=== PATIENT | male | born 1970 | race Caucasian/White ===

== ENCOUNTER 2021-09-29 11:12 | Outpatient (CLI) | payer OTHER, SELFPAY ==
[2021-09-29 11:39] LABS: Hematocrit 43.8 % (40.0-54.0); Hemoglobin 15.1 g/dL (14.0-18.0); Mean Corpuscular HGB Conc 34.5 g/dL (32.0-36.0); Mean Corpuscular Hemoglobin 30.4 pg (27.0-31.0); Mean Corpuscular Volume 88.3 fL (78.0-102.0); Mean Platelet Volume 9.7 fl (8.7-11.0); Platelet Count Result 248 K/mm3 (150-420); Red Blood Count 4.96 M/mm3 (4.70-6.10); Red Cell Distribution Width 12.5 % (11.6-14.4); White Blood Count 8.7 K/mm3 (4.8-10.8)
[2021-09-29 11:45] LABS: Hemoglobin A1C 9.4 % (<5.7)
[2021-09-29 11:57] LABS: Alanine Aminotransferase 33 U/L (16-63); Albumin Level 3.7 g/dL (3.4-5.0); Alkaline Phosphatase 87 U/L (46-116); Anion Gap 7 mmol/L (8-16); Aspartate Amino Transferase 27 U/L (15-37); Bilirubin,Total 0.6 mg/dL (0.00-1.00); Blood Urea Nitrogen 12 mg/dL (7-18); Calcium 9.3 mg/dL (8.5-10.1); Carbon Dioxide 26 mmol/L (21-32); Chloride 100 mmol/L (98-108); Cholesterol 201 mg/dL (0-200); Estimated Glomerular Filt Rate > 60; Glucose 255 mg/dL (70-99); HDL Direct 43 mg/dL (40-60); LDL Cholesterol Calculated 119 mg/dL (<130); Osmolality Calculated 284 mOsm/kg (285-295); Sodium 133 mmol/L (136-145); Total Protein 7.9 g/dL (6.4-8.2); Triglycerides 195 mg/dL (0-150)
[2021-09-29 12:10] LABS: Thyroid Stimulating Hormone Reflex 1.46 u/IU/mL (0.36-3.74)
== END 2021-09-29 11:13 | disposition home or self-care (01) ==
LOC: CHSLAB 11:16
PROVIDERS: PCP Family Medicine; Visit Provider Family Medicine
DX: Z00.00 Encounter for general adult medical examination without abnormal findings (principal); E11.9 Type 2 diabetes mellitus without complications
CPT/HCPCS: 36415; 80053; 80061; 83036; 84443; 85027

== ENCOUNTER 2021-09-30 10:55 | Outpatient (CLI) | payer OTHER, SELFPAY ==
[2021-09-30 11:32] LABS: Creatinine Urine 126.78 mg/dL (40-278); MALB Creatinine Ratio 10.9 mg/g (0-30); Microalbumin Urine Random 13.9 mg/L
== END 2021-09-30 10:56 | disposition home or self-care (01) ==
LOC: CHSLAB 10:57
PROVIDERS: PCP Family Medicine; Visit Provider Family Medicine
DX: E11.9 Type 2 diabetes mellitus without complications (principal)
CPT/HCPCS: 82043

== ENCOUNTER 2021-11-17 00:35 | Day surgery (SDC) | payer OTHER, SELFPAY ==
[2021-11-02 14:03] VITALS: BMI 36.8
[2021-11-17 06:54] LABS: Glucose Point of Care 86 mg/dl (65-105)
[2021-11-17 06:55] VITALS: BP 120/72; PULSE 53; RESP 18; TEMP 36.3; O2SAT 99
[2021-11-17] MEDS: LACTATED RINGERS 1,000 ML 150 ML IV CONT (06:58)
--- NOTE | 2021-11-17 07:29 | P.PNAN_ITS ---
Anes - Initial Pre Proc Eval Procedure: Operation Date: 11/17/21 08:00 Proposed Procedures p Screening Colonoscopy - Toby Capps DO Date/Time: 11/17/21 07:29 Surgeon: Toby Capps DO Pre Op Diagnosis: neoplasm screening Patient Data Age: 51 Gender: M Height: 1.73 m Weight: 108.4 kg Last Vital Signs Temp 97.4 F L 11/17/21 06:55 Pulse 53 L 11/17/21 06:55 Resp 18 11/17/21 06:55 BP 120/72 11/17/21 06:55 Pulse Ox 99 11/17/21 06:55 O2 Del Method Room Air 11/17/21 06:55 Allergies Allergy/AdvReac Type Severity Reaction Status Date / Time ibuprofen [From Advil] Allergy Hives Verified 11/17/21 06:54 Home Medications Medication Instructions Recorded Confirmed Type metformin 500 mg tablet 500 mg PO BID #180 tabs 09/30/21 11/02/21 Rx dulaglutide 0.75 mg/0.5 mL 0.75 mg (0.5 mL) subcut WEEKLY #2 10/04/21 11/02/21 Rx subcutaneous pen injector mL (Trulicity) Laboratory Tests 11/17/21 06:50 POC Capillary Glucose 86 mg/dl mg/dl (65-105) Patient hx anesthesia problems: none Family hx anesthesia problems: none Results Review: All pre-operative results and documents have been reviewed as part of the pre- operative evaluation. [facility], [facility] Past Medical History Medical History DEMETRIO (obstructive sleep apnea) Surgical History Surgical History No history of previous surgery Social History Social History Smoking packs per day: 2 Smoking cigarettes per day: 40.0 Years smoked: 20 Smoking pack-years: 40.00 Smoking status: Former smoker Tobacco type: cigarettes Substance use type: does not use Living arrangements: with family Additional living arrangements comments: . 2 children. Spiritual care concerns: No Anes - Eval Final PreProcedure Day of Procedure 11/17/21 07:29 Patient weight: obese Heart: regular rate and rhythm Lungs: clear to auscultation Airway: Mallampati scale class II Neurological: alert and oriented Last oral intake: >/= 8 hours ASA classification: III Emergent: no Anesthetic plan: proceed Anesthesia type and monitoring: general GIVS and standard monitoring Results Review: All pre-operative results and documents have been reviewed as part of the pre- operative evaluation. Informed Consent: The patient's anesthetic plan and its attendant risks and benefits were discussed with the patient/family/POA. Questions were solicited and answers provided to the satisfaction of the patient/family/POA.
--- NOTE | 2021-11-17 07:36 | PM.IMHP ---
H&P: HPI History of Present Illness Date/Time: 11/17/21 07:36 Chief Complaint: Screening for colorectal cancer Narrative: 51 yo man presents for colonoscopy. Denies hematochezia or melena. Has uncle with hx colon cancer but no 1st degree relatives. Review of Systems Review of Systems: All systems reviewed & are unremarkable except as noted in HPI and below Constitutional: Constitutional: Denies chills, Denies fever(s), Denies headache(s) and Denies weight loss Eyes: Eyes: Denies change in vision ENT: Denies dizziness, Denies headache(s), Denies neck mass and Denies throat swelling Cardiovascular: Cardiovascular: Denies chest pain, Denies lightheadedness and Denies dyspnea Respiratory: Respiratory: Denies cough, Denies dyspnea and Denies wheezing Gastrointestinal: Gastrointestinal: Denies abdominal pain, Denies change in bowel habits, Denies nausea and Denies vomiting Genitourinary: Genitourinary: Denies hematuria and Denies dysuria Musculoskeletal: Musculoskeletal: Reports as per HPI Integumentary/Breasts: Skin/Breast: Reports as per HPI Neurologic: Denies dizziness and Denies headache(s) Allergic/Immunologic: Allergic/Immunologic: Denies throat swelling and Denies wheezing [facility] Past Medical History Medical History DEMETRIO (obstructive sleep apnea) Surgical History Surgical History No history of previous surgery Social History Social History Smoking packs per day: 2 Smoking cigarettes per day: 40.0 Years smoked: 20 Smoking pack-years: 40.00 Smoking status: Former smoker Tobacco type: cigarettes Substance use type: does not use Living arrangements: with family Additional living arrangements comments: . 2 children. Spiritual care concerns: No Meds Home Medications and Allergies Home Medications Medication Instructions Recorded Confirmed Type metformin 500 mg tablet 500 mg PO BID #180 tabs 09/30/21 11/02/21 Rx dulaglutide 0.75 mg/0.5 mL 0.75 mg (0.5 mL) subcut WEEKLY #2 10/04/21 11/02/21 Rx subcutaneous pen injector mL (Trulicity) Allergies Allergy/AdvReac Type Severity Reaction Status Date / Time ibuprofen [From Advil] Allergy Hives Verified 11/17/21 06:54 Vital Signs Vital Signs - 24 hr 11/17/21 06:55 Temperature 36.3 C L Pulse Rate 53 L Respiratory Rate 18 Blood Pressure 120/72 Pulse Oximetry 99 Oxygen Delivery Room Air Exam Const: General: no acute distress and alert Orientation/consciousness: patient oriented x3 HENMT: Head: normocephalic and atraumatic Ears: hearing grossly normal bilaterally General nose exam: Normal nares present Mouth: Yes Normal oral and palatal mucosa present Eyes: Periorbital: periorbital findings normal Sclera: sclerae normal EOM: EOMs intact bilaterally Neck: Neck: normal visual inspection, no lymphadenopathy and trachea midline Chest: Chest palpation & inspection: normal inspection of the chest Resp: Effort & Inspection: normal respiratory effort Auscultation: clear to auscultation bilaterally Cardio: Jugular venous distension: no JVD Rate: regular rate Rhythm: regular rhythm Heart sounds: S1 normal heart sound present and S2 normal heart sound present Peripheral pulses: Peripheral pulses 2+ throughout GI: Inspection: normal to inspection GI Palp: Yes Soft to palpation, No Tenderness to palpation present (GI), No Guarding due to palpation present (GI) and No Rebound tenderness present Percussion: Yes normal to percussion Auscultation: normal bowel sounds : General: Yes no CVA tenderness Back/Spine/Pelvis: Back: no CVA tenderness Neuro: General: patient oriented x3, no focal motor deficits and CN's II-XI intact bilaterally Cognition (Neuro): normal cognition Speech: normal speech Motor exam (neuro): 5/5 motor strength present t
[2021-11-17 08:09] VITALS: BP 87/52; PULSE 56; RESP 18; O2SAT 96
[2021-11-17 08:19] VITALS: BP 87/62; PULSE 54; RESP 19; O2SAT 96
[2021-11-17 08:29] VITALS: BP 110/68; PULSE 56; RESP 20; O2SAT 98
== END 2021-11-17 08:35 | disposition home or self-care (01) ==
PROVIDERS: PCP Family Medicine; Visit Provider Surgery
PROC: 0DJD8ZZ Inspection of Lower Intestinal Tract, Via Natural or Artificial Opening Endoscopic (ICD-10-PCS; CPT 45378; principal; 2021-11-17 08:00)
DX: Z12.11 Encounter for screening for malignant neoplasm of colon (principal); D12.3 Benign neoplasm of transverse colon; D12.5 Benign neoplasm of sigmoid colon; K64.4 Residual hemorrhoidal skin tags; K63.5 Polyp of colon; G47.33 Obstructive sleep apnea (adult) (pediatric); Z87.891 Personal history of nicotine dependence; Z79.84 Long term (current) use of oral hypoglycemic drugs; E66.9 Obesity, unspecified; Z68.36 Body mass index [BMI] 36.0-36.9, adult
CPT/HCPCS: 45385; 45380; 82948; 88305; J2704; J7120

== ENCOUNTER 2022-10-09 08:54 | Outpatient (CLI) | payer OTHER, SELFPAY ==
--- NOTE | ~2022-10-09 | XR_ITS ---
Bilateral Hands Technique: Bilateral PA, oblique, and lateral views, and ball-catcher's view were obtained. Clinical History: Polyarthritis Findings: No acute fracture or dislocation is seen. There is moderate degenerative change at the righ t fifth PIP joint. Remaining joint spaces bilaterally appear intact. Soft tissues are unremarkable. 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 Reviewed, dictated and finalized at location M. 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
[2022-10-09 09:34] LABS: Creatinine Urine 181.58 mg/dL (40-278)
[2022-10-09 09:39] LABS: Hemoglobin A1C 6.7 % (<5.7)
[2022-10-09 10:10] LABS: Rheumatoid Factor Screen Negative (Negative)
[2022-10-09 10:15] LABS: Alanine Aminotransferase 60 U/L (16-63); Albumin Level 3.8 g/dL (3.4-5.0); Alkaline Phosphatase 84 U/L (46-116); Anion Gap 8 mmol/L (8-16); Aspartate Amino Transferase 41 U/L (15-37); Bilirubin,Total 0.6 mg/dL (0.00-1.00); Blood Urea Nitrogen 14 mg/dL (7-18); Calcium 8.8 mg/dL (8.5-10.1); Carbon Dioxide 27 mmol/L (21-32); Chloride 103 mmol/L (98-108); Cholesterol 211 mg/dL (0-200); Estimated Glomerular Filt Rate > 60; Glucose 183 mg/dL (70-99); HDL Direct 44 mg/dL (40-60); LDL Cholesterol Calculated 137 mg/dL (<130); Osmolality Calculated 291 mOsm/kg (285-295); Potassium 4.2 mmol/L (3.5-5.1); Sodium 138 mmol/L (136-145); Triglycerides 150 mg/dL (0-150)
[2022-10-09 10:16] LABS: CRP 0.7 mg/dL (0.0-0.9)
[2022-10-12 10:50] LABS: ANA Cascade Screen Negative (Negative)
[2022-10-12 15:13] LABS: Immunoglobulin A 337 mg/dL (47-310); TTG IGA AB <1.0 U/mL (<15.0)
== END 2022-10-09 08:55 | disposition home or self-care (01) ==
LOC: CHSLAB 08:56
PROVIDERS: PCP Family Medicine; Visit Provider Family Medicine
DX: E11.9 Type 2 diabetes mellitus without complications (principal); M13.0 Polyarthritis, unspecified
CPT/HCPCS: 36415; 73130; 80053; 80061; 82043; 82784; 83036; 83516; 86003; 86038; 86140; 86430

== ENCOUNTER 2024-04-15 09:48 | Outpatient (CLI) | payer OTHER, SELFPAY ==
[2024-04-15 10:02] LABS: Basophils Absolute Auto 0.06 K/mm3 (0.00-0.10); Basophils Percent Auto 0.7 % (0.0-1.0); Eosinophils Absolute Auto 0.26 K/mm3 (0.02-0.50); Eosinophils Percent Auto 2.9 % (1.0-6.0); Hematocrit 48.8 % (40.0-54.0); Hemoglobin 16.1 g/dL (14.0-18.0); Immature Granulocyte Absolute 0.03 K/mm3 (0.00-0.00); Immature Granulocyte Percent A 0.3 % (0.0-0.0); Lymphocytes Absolute Auto 2.81 K/mm3 (1.10-4.50); Lymphocytes Percent Auto 31.2 % (18.0-42.0); Mean Corpuscular Hemoglobin 29.5 pg (27.0-31.0); Mean Corpuscular Volume 89.5 fL (78.0-102.0); Mean Platelet Volume 9.1 fl (8.7-11.0); Monocytes Absolute Auto 0.73 K/mm3 (0.10-0.90); Monocytes Percent Auto 8.1 % (2.0-11.0); Neutrophils Absolute Auto 5.12 K/mm3 (1.70-7.20); Neutrophils Percent Auto 56.8 % (50.0-70.0); Platelet Count Result 258 K/mm3 (150-420); Red Blood Count 5.45 M/mm3 (4.70-6.10); Red Cell Distribution Width 13.3 % (11.6-14.4)
[2024-04-15 10:43] LABS: Creatinine Urine 181.43 mg/dL (40-278); MALB Creatinine Ratio 7.1 mg/g (0-30); Microalbumin Urine Random < 13.0 mg/L
[2024-04-15 10:45] LABS: Hemoglobin A1C 4.9 % (<5.7)
[2024-04-15 10:50] LABS: Alanine Aminotransferase 22 U/L (16-63); Albumin Level 4.2 g/dL (3.4-5.0); Alkaline Phosphatase 45 U/L (46-116); Anion Gap 7 mmol/L (4-12); Aspartate Amino Transferase 26 U/L (15-37); Blood Urea Nitrogen 13 mg/dL (7-18); Calcium 9.5 mg/dL (8.5-10.1); Carbon Dioxide 31 mmol/L (21-32); Chloride 103 mmol/L (98-108); Cholesterol 188 mg/dL (0-200); Estimated Glomerular Filt Rate 58; Glucose 82 mg/dL (70-99); HDL Direct 50 mg/dL (40-60); LDL Cholesterol Calculated 117 mg/dL (<130); Osmolality Calculated 291 mOsm/kg (285-295); Potassium 4.8 mmol/L (3.5-5.1); Sodium 141 mmol/L (136-145); Total Protein 7.1 g/dL (6.4-8.2); Triglycerides 107 mg/dL (0-150)
== END 2024-04-15 09:49 | disposition home or self-care (01) ==
LOC: CHSLAB 09:48
PROVIDERS: PCP Family Medicine; Visit Provider Family Medicine
DX: G47.33 Obstructive sleep apnea (adult) (pediatric) (principal); E11.9 Type 2 diabetes mellitus without complications
CPT/HCPCS: 36415; 80053; 80061; 82043; 83036; 85025